=== PATIENT | male | born 1955 ===

== ENCOUNTER 2019-01-09 04:50 | Day surgery (SDC) | payer OTHER ==
[~2019-01-09 04:50] MED LIST: ALENDRONATE SOD70 MG PO; ATENOLOL25 MG PO; FISH OIL CONC1000 MG PO; FOLIC ACID20 MG PO; GABAPENTIN PO; LUMINAL PO; OLANZAPINE2.5 MG PO; PAXIL20 MG PO; PHENOBARBITAL30 MG PO; RESTORIL30 M1 PO; TEGRETOL200 MG PO; ZOCOR20 MG PO
== END 2019-01-09 13:35 | disposition home or self-care (01) ==
LOC: CIR.AMB 04:50
DX: S62.102P Fracture of unspecified carpal bone, left wrist, subsequent encounter for fracture with malunion (principal); M66.342 Spontaneous rupture of flexor tendons, left hand
CPT/HCPCS: 25405; 25118; 25280; 26356; 26440; C1776